=== PATIENT | female | born 1980 | race Caucasian/White ===

== ENCOUNTER 2020-03-25 13:49 | Emergency (ER) | payer OTHER, MEDICAID ==
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
[2020-03-25] MEDS ORDERED: OXYCODONE-ACETAMINOPHEN 5-325 MG TABLET PO ONE (14:50)
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
[2020-03-25 17:05] VITALS: BP 126/79
== END 2020-03-25 17:05 | disposition home or self-care (01) ==
LOC: ER 13:49
DX: K76.0 Fatty (change of) liver, not elsewhere classified (principal); S80.812A Abrasion, left lower leg, initial encounter; V87.7XXA Person injured in collision between other specified motor vehicles (traffic), initial encounter; M79.605 Pain in left leg; F17.200 Nicotine dependence, unspecified, uncomplicated; I10 Essential (primary) hypertension
CPT/HCPCS: 71260; 74177; 99284